=== PATIENT | female | born 1960 | race Caucasian/White ===

== ENCOUNTER 2017-12-03 23:33 | Observation (INO) | payer SELFPAY ==
[~2017-12-03] VITALS: Ht 165.1 cm; Wt 50.0 kg
[~2017-12-03 23:33] MED LIST: CYCL-36 PO; ZITH250T PO
[2017-12-03 23:36] VITALS: BP 118/65; PULSE 104; RESP 16; TEMP 99.4; O2SAT 100
--- NOTE | 2017-12-04 00:05 | PD ---
HPI Chief Complaint: Abdominal Pain Time Seen by Provider: 23:52 Travel History International Travel<30 days: No Contact w/Intl Traveler<30days: No Traveled to known affect area: No History of Present Illness HPI 57yo F with no significant PMH presents to the ED with c/o sudden onset abdominal pain around 7:30pm today. Said pain is mainly epigastric and associated with nausea, vomiting and nonbloody diarrhea. Said she did feel a little better after vomiting but still there. Pain is sharp, constant, nonradiating. Pt also said she started having chills and shaking and her whole body is aching now. Denies actual fever, chest pain, sob, diarrhea, dysuria, hematuria, vaginal bleeding or discharge. PFSH Past Medical History Diminished Hearing: No Genitourinary: Yes (IC) Tetanus Vaccination: Unknown Influenza Vaccination: No ?: Not Past Surgical History Hysterectomy: Yes (partial) Social History Alcohol Use: No Tobacco Use: No Substance Use: No Allergies-Medications (Allergen,Severity, Reaction): Coded Allergies: cephalexin (Unverified Adverse Reaction, Severe, "Bones ache", 12/03/17) Reported Meds & Prescriptions Reported Meds & Active Scripts Active Flexeril (Cyclobenzaprine HCl) 10 Mg Tab 10 Mg PO TID Zithromax Z-Reginaldo (Azithromycin) 250 Mg Tab 250 Mg PO DIRECTED 500 MG (2 TABLETS) PO ON DAY 1, THEN 250 MG (1 TABLET) PO ON DAYS 2 TO 5. Review of Systems Except as stated in HPI: all other systems reviewed are Neg Physical Exam Narrative GENERAL: 57yo F in mild distress. SKIN: Focused skin assessment warm/dry. HEAD: Atraumatic. Normocephalic. EYES: Pupils equal and round. No scleral icterus. No injection or drainage. ENT: No nasal bleeding or discharge. Mucous membranes pink and moist. NECK: Trachea midline. No JVD. No nuchal rigidity. CARDIOVASCULAR: Regular rate and rhythm. No murmur appreciated. RESPIRATORY: No accessory muscle use. Clear to auscultation. Breath sounds equal bilaterally. GASTROINTESTINAL: Abdomen soft, +TTP epigastric region> suprapubic and left lower abdomen. No RLQ ttp. No rebound tenderness or guarding. BACK: No midline ttp thoracic or lumbar spine. +TTP paraspinal T12-L5 bilaterally. MUSCULOSKELETAL: No obvious deformities. No clubbing. No cyanosis. No edema. NEUROLOGICAL: Awake and alert. No obvious cranial nerve deficits. Motor grossly within normal limits in all extremities. Sensation equal. Normal speech. PSYCHIATRIC: Appropriate mood and affect; insight and judgment normal. Data Data Last Documented VS Vital Signs Date Time Temp Pulse Resp B/P (MAP) Pulse Ox O2 Delivery O2 Flow Rate FiO2 12/03/17 23:36 99.4 104 16 118/65 (82) 100 Orders Orders Complete Blood Count With Diff (12/04/17 00:03) Comprehensive Metabolic Panel (12/04/17 00:03) Lipase (12/04/17 00:03) Urinalysis - C+S If Indicated (12/04/17 00:03) Ct Abd/Pel W Iv Contrast(Rout) (12/04/17 00:03) Electrocardiogram (12/04/17 00:03) Ondansetron Odt (Zofran Odt) (12/04/17 00:15) Ketorolac Inj (Toradol Inj) (12/04/17 00:15) Creatine Kinase (Cpk) (12/04/17 00:12) Iohexol 350 Inj (Omnipaque 350 Inj) (12/04/17 00:21) Blood Culture (12/04/17 01:10) Lactic Acid Sepsis Protocol (12/04/17 01:10) Sodium Chlor 0.9% 1000 Ml Inj (Ns 1000 M (12/04/17 01:15) Vancomycin Inj (Vancomycin Inj) (12/04/17 01:15) Aztreonam Inj (Azactam Inj) (12/04/17 01:15) Admit Order (Ed Use Only) (12/04/17 01:18) Labs Laboratory Tests Test 12/04/17 00:12 White Blood Count 4.4 TH/MM3 Red Blood Count 4.19 MIL/MM3 Hemoglobin 13.6 GM/DL Hematocrit 37.6 % Mean Corpuscular Volume 89.7 FL Mean Corpuscular Hemoglobin 32.5 PG Mean Corpuscular Hemoglobin Concent 36.3 % Red Cell Distribution Width 12.5 % Platelet Count 167 TH/MM3 Mean Platelet Volume 8.0 FL CBC Comment AUTO DIFF Differential Total Cells Counted 100 Neutrophils % (Manual) 70 % Band Neutrophils % 14 % Lymphocytes % 7 % Monocytes % 1 % Neutrophils # (Manual) 4.0 TH/MM3 Metamyelocytes 8 % Differential Comment FINAL DIFF MANUAL Toxic Vacuolation PRESENT Platelet Estimate NORMAL Platelet Morphology Comment NORMAL Red Cell Morphology Comment NORMAL Urine Color LIGHT-YELLOW Urine Turbidity CLEAR Urine pH 8.0 Urine Specific [place] 1.009 Urine Protein NEG mg/dL Urine Glucose (UA) NEG mg/dL Urine Ketones NEG mg/dL Urine Occult Blood NEG Urine Nitrite NEG Urine Bilirubin NEG Urine Urobilinogen LESS THAN 2.0 MG/DL Urine Leukocyte Esterase NEG Urine RBC 1 /hpf Urine WBC 1 /hpf Urine Squamous Epithelial Cells <1 /hpf Microscopic Urinalysis Comment CULT NOT INDICATED Blood Urea Nitrogen 16 MG/DL Creatinine 0.97 MG/DL Random Glucose 116 MG/DL Total Protein 9.1 GM/DL Albumin 3.8 GM/DL Calcium Level 9.5 MG/DL Alkaline Phosphatase 118 U/L Aspartate Amino Transf (AST/SGOT) 28 U/L Alanine Aminotransferase (ALT/SGPT) 25 U/L Total Bilirubin 0.6 MG/DL Sodium Level 139 MEQ/L Potassium Level 3.7 MEQ/L Chloride Level 102 MEQ/L Carbon Dioxide Level 29.4 MEQ/L Anion Gap 8 MEQ/L Estimat Glomerular Filtration Rate 59 ML/MIN Total Creatine Kinase 111 U/L Lipase 167 U/L [facility] Medical Decision Making Medical Screen Exam Complete: Yes Emergency Medical Condition: Yes Interpretation(s) EKG: NSR 95bpm. Normal axis. Q wave V2. No significant ST segment elevation. Mild ST depression V4-V6. Reviewed previous EKG in 2016 and there was Q wave in V2 as well. Differential Diagnosis Gastroenteritis vs. pancreatitis vs. viral syndrome vs. diverticulitis vs. cystitis vs. dehydration Narrative Course 57yo F with sudden onset epigastric abdominal pain and then nausea and vomiting. Also feels generalized ache after vomiting. Labs reviewed, no leukocytosis but pt has 14% bandemia as well as toxic vacuolation present. Pt is mildly tachycardic at 104bpm. Pt meets SIRS criteria with no definite source , could be bacteremia. Blood cultures x2 and lactic acid added. Will cover pt with broad spectrum antibiotics vancomycin and aztreonam since pt is allergic to cephalexin. Pt given NS IVF. H/H normal. Lipase normal. LFTs unremarkable. CPK normal. Creatinine normal. UA negative. CT a/p showed nonspecific bowel gas pattern. No dilatation to suggest obstruction. Unremarkable. Pt reevaluated at bedside and given zofran and toradol. Pain has improved and nausea has resolved. Discuss with Dr. Villalobos and accepted to his service. Sepsis Criteria SIRS Criteria (2 or more): Heart rate over 90, WBC > 56856, < 4000 or > 10% bands Diagnosis Primary Impression: Bandemia Admitting Information Admitting Physician Requests: Observation Courtney Aguirre DO December 04, 2017 00:05
[2017-12-04] MEDS ORDERED: KETOROLAC TROMETHAMINE 30 MG/ML (IVP) VIAL IV PUSH ONE (00:15)
[2017-12-04] MEDS ORDERED: ONDANSETRON ODT 4 MG TAB PO ONE (00:15)
[2017-12-04] MEDS ORDERED: IOHEXOL 350 MG/ML 10 ML VIAL (for RAD DIAG) IVCONTRAST ONE (00:21)
[2017-12-04 00:27] LABS: HEMATOCRIT 37.6 % (35.0-46.0); HEMOGLOBIN 13.6 GM/DL (11.6-15.3); MEAN CELL VOLUME 89.7 FL (80.0-100.0); MEAN CORPUSCULAR HEMOGLOBIN 32.5 PG (27.0-34.0); PLATELET COUNT 167 TH/MM3 (150-450); RED BLOOD COUNT 4.19 MIL/MM3 (4.00-5.30); RED CELL DISTRIBUTION WIDTH 12.5 % (11.6-17.2); WHITE BLOOD COUNT 4.4 TH/MM3 (4.0-11.0)
[2017-12-04 00:28] LABS: BILIRUBIN, URINE NEG (NEG); BLOOD, URINE NEG (NEG); GLUCOSE,URINE NEG (NEG); KETONE, URINE NEG (NEG); NITRITE,URINE NEG (NEG); SQUAMOUS EPITHELIAL CELL URINE <1 /hpf (0-5); URINE COLOR LIGHT-YELLOW (YELLW/STRAW); URINE LEUKOCYTE ESTERASE NEG (NEG)
[2017-12-04 00:29] LABS: MEAN CORPUSCULAR HGB CONC 36.3 % (32.0-36.0)
--- NOTE | 2017-12-04 00:33 | RADRPT ---
EXAM DATE/TIME: 12/04/2017 00:15 [facility] COMPARISON: No previous studies available for comparison. INDICATIONS : Epigastric abdominal pain. IV CONTRAST: 75 cc Omnipaque 350 (iohexol) IV ORAL CONTRAST: No oral contrast ingested. RADIATION DOSE: 6.64 CTDIvol (mGy) MEDICAL HISTORY : None SURGICAL HISTORY : Hysterectomy. ENCOUNTER: Initial ACUITY: 1 day PAIN SCALE: 7/10 LOCATION: Abdomen. TECHNIQUE: Volumetric scanning of the abdomen and pelvis was performed. Using automated exposure control and ad justment of the mA and/or kV according to patient size, radiation dose was kept as low as reasonably achievable to obtain optimal diagnostic quality images. DICOM format image data is available electro nically for review and comparison. FINDINGS: LOWER LUNGS: The visualized lower lungs are clear. LIVER: Homogeneous density without lesion. There is no dilation of the biliary tree. No calcified gallston es. SPLEEN: Normal size without lesion. PANCREAS: Within normal limits. KIDNEYS: Normal in size and shape. There is no mass, stone or hydronephrosis. ADRENAL GLANDS: Within normal limits. VASCULAR: There is no aortic aneurysm. BOWEL/MESENTERY: Fluid-filled loops of nondilated large and small bowel. No inflammatory change observed. No free air or free fluid. Gas and stool seen to the level of the rectum. The stomach is a J - shaped stomach and nondistended. ABDOMINAL WALL: Within normal limits. RETROPERITONEUM: There is no lymphadenopathy. BLADDER: No wall thickening or mass. REPRODUCTIVE: Within normal limits. INGUINAL: There is no lymphadenopathy or hernia. MUSCULOSKELETAL: Within normal limits for patient age. CONCLUSION: 1. Nonspecific bowel gas pattern. No dilatation to suggest obstruction. Otherwise, unremarkable exam. Jori Franz Jr., MD on December 04, 2017 at 0:28 Board Certified Radiologist. This report was verified electronically.
[2017-12-04 00:49] LABS: ALBUMIN 3.8 GM/DL (3.4-5.0); ALT (GPT) 25 U/L (10-53); AST (GOT) 28 U/L (15-37); BICARBONATE 29.4 MEQ/L (21.0-32.0); BLOOD UREA NITROGEN 16 MG/DL (7-18); CALCIUM 9.5 MG/DL (8.5-10.1); CHLORIDE 102 MEQ/L (98-107); CREATININE 0.97 MG/DL (0.50-1.00); GLOMERULAR FILTRATION RATE 59 ML/MIN (>89); GLUCOSE,RANDOM 116 MG/DL (74-106); SODIUM (NA) 139 MEQ/L (136-145)
[2017-12-04 00:51] LABS: ALKALINE PHOSPHATASE 118 U/L (45-117); TOTAL BILIRUBIN ADULT 0.6 MG/DL (0.2-1.0); TOTAL PROTEIN 9.1 GM/DL (6.4-8.2)
[2017-12-04 00:56] LABS: BANDS 14 % (0-6); LYMPHOCYTES 7 % (9-44); METAMYELOCYTES 8 % (0-1); MONOCYTES 1 % (0-8); POLYS (SEG NEUTROPHILS) 70 % (16-70)
[2017-12-04 00:59] LABS: TOXIC VACUOLATION PRESENT (NONE SEEN)
[2017-12-04] MEDS ORDERED: SODIUM CHLOR 0.9% 1000 ML INJ 1,000 ML IV ONE (01:15)
[2017-12-04] MEDS ORDERED: AZTREONAM INJ 2,000 MG in SODIUM CHLORIDE 0.9% INJ 100 ML IV ONE (01:15)
[2017-12-04] MEDS ORDERED: VANCOMYCIN INJ 750 MG in SODIUM CHLOR 0.9% 250 ML INJ 250 ML IV ONE (01:15)
[2017-12-04] MEDS ORDERED: ACETAMINOPHEN/HYDROcodone 325 MG/5 MG TAB PO PRN (01:45)
[2017-12-04] MEDS ORDERED: ACETAMINOPHEN 325 MG TAB PO PRN (01:45)
[2017-12-04] MEDS ORDERED: ONDANSETRON HCL 4 MG/2 ML VIAL IV PUSH PRN (01:45)
--- NOTE | 2017-12-04 01:58 | HHI.HP ---
[facility] No Primary Care Physician Admission Diagnosis Bandemia Diagnoses: (1) Abdominal pain Diagnosis: Principal (2) Bandemia Diagnosis: Principal Chief Complaint: abdominal pain Travel History International Travel<30 Days: No Contact w/Intl Traveler <30 Da: No Traveled to Known Affected Are: No Sepsis Criteria SIRS Criteria (2 or more): Heart rate over 90, WBC > 32417, < 4000 or > 10% bands Criteria Outcome: Meets SIRS criteria History of Present Illness patient is a 57 y/o female with no significant past medica history who presented to ER with abdominal pain. she says that the pain started few hours ago. pain was periumbilical with no radiation. pain was moderate in intensity and was associated with nausea, emesis and diarrhea. she denies any fever but had some chills and generalized body ache. abdominal pain was better at the time of my evaluation. she doesn't report any sob, cough or urinary complaints. Review of Systems Constitutional: DENIES: Fever, Weight loss, Chills, Night Sweats Eyes: DENIES: Blurred vision, Diplopia, Vision loss, Double Vision Ears, nose, mouth, throat: DENIES: Tinnitus, Vertigo, Throat pain, Epistaxis Respiratory: DENIES: Apneas, Cough, Snoring, Wheezing, Hemoptysis, Sputum production, Shortness of breath Cardiovascular: DENIES: Chest pain, Palpitations, Syncope, Dyspnea on Exertion , PND, Lower Extremity Edema, Orthopnea, Claudication Gastrointestinal: COMPLAINS OF: Abdominal pain, Diarrhea, Nausea, Vomiting, DENIES: Black stools, Bloody stools, Constipation, Difficulty Swallowing, Anorexia Genitourinary: DENIES: Urinary frequency, Urgency, Hematuria, Dysuria Musculoskeletal: DENIES: Joint pain, Muscle aches, Stiffness, Joint Swelling Integumentary: DENIES: Rash Neurologic: DENIES: Abnormal gait, Headache, Localized weakness, Paresthesias, Seizures, Speech Problems, Tremor, Poor Balance Psychiatric: DENIES: Anxiety, Confusion, Mood changes, Depression, Hallucinations, Agitation, Suicidal Ideation, Homicidal Ideation, Delusions Past Family Social History Past Medical History not significant. Past Surgical History partial hysterectomy. Reported Medications none. Allergies: Coded Allergies: cephalexin (Unverified Adverse Reaction, Severe, "Bones ache", 12/03/17) Active Ordered Medications Inpatient Medications Aztreonam 2000 mg/ Sodium Chloride 100 ml @ 200 mls/hr ONCE ONCE IV ; Start at 01:15; Stop 12/04/17 at 01:44 Ketorolac Tromethamine (Toradol Inj) 30 mg ONCE ONCE IV PUSH Last administered on 12/04/17at 00:16; Start 12/04/17 at 00:15; Stop 12/04/17 at 00:16 ; Status DC Ondansetron HCl (Zofran Odt) 4 mg ONCE ONCE PO Last administered on at 00:12; Start 12/04/17 at 00:15; Stop 12/04/17 at 00:16; Status DC Sodium Chloride 1,000 ml @ 999 mls/hr BOLUS ONCE IV ; Start 12/04/17 at 01:15 ; Stop 12/04/17 at 02:15 Vancomycin HCl 750 mg/Sodium Chloride 257.5 ml @ 250 mls/hr ONCE ONCE IV ; Start 12/04/17 at 01:15; Stop 12/04/17 at 02:16 Family History stomach cancer in mother. Social History no smoking or drinking. Physical Exam Vital Signs Vital Signs Date Time Temp Pulse Resp B/P (MAP) Pulse Ox O2 Delivery O2 Flow Rate FiO2 12/03/17 23:36 99.4 104 16 118/65 (82) 100 Physical Exam GENERAL: This is a well-nourished, well-developed patient, in no apparent distress. SKIN: No rashes, ecchymoses or lesions. Cool and dry. HEAD: Atraumatic. Normocephalic. No temporal or scalp tenderness. EYES: Pupils equal round and reactive. Extraocular motions intact. No scleral icterus. No injection or drainage. ENT: Nose without bleeding, purulent drainage or septal hematoma. Throat without erythema, tonsillar hypertrophy or exudate. Uvula midline. Airway patent. NECK: Trachea midline. No JVD or lymphadenopathy. Supple, nontender, no meningeal signs. CARDIOVASCULAR: Regular rate and rhythm without murmurs, gallops, or rubs. RESPIRATORY: Clear to auscultation. Breath sounds equal bilaterally. No wheezes , rales, or rhonchi. GASTROINTESTINAL: Abdomen soft, mild periumbilical tenderness, nondistended. No hepato-splenomegaly, or palpable masses. No guarding. MUSCULOSKELETAL: Extremities without clubbing, cyanosis, or edema. No joint tenderness, effusion, or edema noted. No calf tenderness. Negative Homans sign bilaterally. NEUROLOGICAL: Awake and alert. Cranial nerves II through XII intact. Motor and sensory grossly within normal limits. Five out of 5 muscle strength in all muscle groups. Normal speech. Laboratory Laboratory Tests Test 12/04/17 00:12 12/04/17 01:25 White Blood Count 4.4 Red Blood Count 4.19 Hemoglobin 13.6 Hematocrit 37.6 Mean Corpuscular Volume 89.7 Mean Corpuscular Hemoglobin 32.5 Mean Corpuscular Hemoglobin Concent 36.3 Red Cell Distribution Width 12.5 Platelet Count 167 Mean Platelet Volume 8.0 CBC Comment AUTO DIFF Differential Total Cells Counted 100 Neutrophils % (Manual) 70 Band Neutrophils % 14 Lymphocytes % 7 Monocytes % 1 Neutrophils # (Manual) 4.0 Metamyelocytes 8 Differential Comment FINAL DIFF MANUAL Toxic Vacuolation PRESENT Platelet Estimate NORMAL Platelet Morphology Comment NORMAL Red Cell Morphology Comment NORMAL Urine Color LIGHT-YELLOW Urine Turbidity CLEAR Urine pH 8.0 Urine Specific [place] 1.009 Urine Protein NEG Urine Glucose (UA) NEG Urine Ketones NEG Urine Occult Blood NEG Urine Nitrite NEG Urine Bilirubin NEG Urine Urobilinogen LESS THAN 2.0 Urine Leukocyte Esterase NEG Urine RBC 1 Urine WBC 1 Urine Squamous Epithelial Cells <1 Microscopic Urinalysis Comment CULT NOT INDICATED Blood Urea Nitrogen 16 Creatinine 0.97 Random Glucose 116 Total Protein 9.1 Albumin 3.8 Calcium Level 9.5 Alkaline Phosphatase 118 Aspartate Amino Transf (AST/SGOT) 28 Alanine Aminotransferase (ALT/SGPT) 25 Total Bilirubin 0.6 Sodium Level 139 Potassium Level 3.7 Chloride Level 102 Carbon Dioxide Level 29.4 Anion Gap 8 Estimat Glomerular Filtration Rate 59 Total Creatine Kinase 111 Lipase 167 Date/Time Source Procedure Growth Status 12/04/17 01:25 Blood Peripheral Aerobic Blood Culture Pending Received 12/04/17 01:25 Blood Peripheral Anaerobic Blood Culture Pending Received Result Diagram: 12/04/17 0012 12/04/17 0012 Imaging Last Impressions Abdomen/Pelvis CT 12/04/17 0003 Signed Impressions: Service Date/Time: WedDecember 04, 2017 00:15 - CONCLUSION: 1. Nonspecific bowel gas pattern. No dilatation to suggest obstruction. Otherwise, unremarkable exam. MD Aimee Neal Jr. VTE Risk Assessment Caprini VTE Risk Assessment: No/Low Risk (score <= 1) Caprini Risk Assessment Model Point Value = 1 Point Value = 2 Point Value = 3 Point Value = 5 Age 41-60 Minor surgery BMI > 25 kg/m2 Swollen legs Varicose veins or History of unexplained or recurrent spontaneous Oral contraceptives or hormone replacement Sepsis (< 1 month) Serious lung disease, including pneumonia (< 1 month) Abnormal pulmonary function Acute myocardial infarction Congestive heart failure (< 1 month) History of inflammatory bowel disease Medical patient at bed rest Age 61-74 Arthroscopic surgery Major open surgery (> 45 min) Laparoscopic surgery (> 45 min) Malignancy Confined to bed (> 72 hours) Immobilizing plaster cast Central venous access Age >= 75 History of VTE Family history of VTE Factor V Leiden Prothrombin [id number] Lupus anticoagulant Anticardiolipin antibodies Elevated serum homocysteine Heparin-induced thrombocytopenia Other congenital or acquired thrombophilia Stroke (< 1 month) Elective arthroplasty Hip, pelvis, or leg fracture Acute spinal cord injury (< 1 month) Prophylaxis Regimen Total Risk Factor Score Risk Level Prophylaxis Regimen 0-1 Low Early ambulation 2 Moderate Order ONE of the following: *Sequential Compression Device (SCD) *Heparin 5000 units SQ BID 3-4 Higher Order ONE of the following medications: *Heparin 5000 units SQ TID *Enoxaparin/Lovenox 40 mg SQ daily (WT < 150 kg, CrCl > 30 mL/min) *Enoxaparin/Lovenox 30 mg SQ daily (WT < 150 kg, CrCl > 10-29 mL/min) *Enoxaparin/Lovenox 30 mg SQ BID (WT < 150 kg, CrCl > 30 mL/min) AND/OR *Sequential Compression Device (SCD) 5 or more Highest Order ONE of the following medications: *Heparin 5000 units SQ TID (Preferred with Epidurals) *Enoxaparin/Lovenox 40 mg SQ daily (WT < 150 kg, CrCl > 30 mL/min) *Enoxaparin/Lovenox 30 mg SQ daily (WT < 150 kg, CrCl > 10-29 mL/min) *Enoxaparin/Lovenox 30 mg SQ BID (WT < 150 kg, CrCl > 30 mL/min) AND *Sequential Compression Device (SCD) Assessment and Plan Assessment and Plan A/P - sepsis ( bandemia/ tachycardia) / gastroenteritis ( abdominal pain,nausea, vomiting, diarrhea) continue with broad spectrum IV antibiotics for now - pending the blood cultures/ stool work-up and repeated CBC in am start on clear liquid diet and advance the diet as tolerated- continue with supportive care with IV fluid, pain control and antiemetics as needed. Discussed Condition With ER physician and the patient. Problem Qualifiers (1) Abdominal pain: Qualified Codes: R10.33 - Periumbilical pain Kimberly Villalobos MD December 04, 2017 01:58
[2017-12-04] MEDS ORDERED: CEFEPIME INJ 1,000 MG in SODIUM CHLORIDE 0.9% INJ 100 ML IV SCH (03:00)
[2017-12-04] MEDS: SODIUM CHLOR 0.9% 1000 ML INJ 1,000 ML IV SCH ×2 (03:43→11:45)
[2017-12-04 04:13] VITALS: BP 106/55; PULSE 89; RESP 18; TEMP 98.7; O2SAT 98
[2017-12-04 07:04] LABS: AUTOMATED NEUTROPHIL # 11.9 TH/MM3 (1.8-7.7); BASOPHIL % 0.4 % (0.0-2.0); HEMATOCRIT 34.9 % (35.0-46.0); HEMOGLOBIN 11.6 GM/DL (11.6-15.3); LYMPHOCYTE # 0.7 TH/MM3 (1.0-4.8); MEAN CORPUSCULAR HEMOGLOBIN 30.8 PG (27.0-34.0); MEAN CORPUSCULAR HGB CONC 33.1 % (32.0-36.0); MEAN PLATELET VOLUME 8.1 FL (7.0-11.0); MONO % 4.1 % (0.0-8.0); MONOCYTE # 0.5 TH/MM3 (0-0.9); NEUT % 90.5 % (16.0-70.0); PLATELET COUNT 143 TH/MM3 (150-450); RED BLOOD COUNT 3.75 MIL/MM3 (4.00-5.30); RED CELL DISTRIBUTION WIDTH 13.1 % (11.6-17.2); WHITE BLOOD COUNT 13.2 TH/MM3 (4.0-11.0)
[2017-12-04 07:23] VITALS: BP 88/52; PULSE 75; RESP 16; TEMP 98.1; O2SAT 98
[2017-12-04] MEDS ORDERED: metroNIDAZOLE 500 MG TAB PO ONE (08:45)
[2017-12-04] MEDS ORDERED: LEVOFLOXACIN 750 MG PREMIX INJ 150 ML IV SCH (09:00)
[2017-12-04 12:12] VITALS: BP 97/53; PULSE 72; RESP 16; TEMP 98.2; O2SAT 99
[2017-12-04] MEDS ORDERED: METR-1 PO (12:26)
[2017-12-04] MEDS ORDERED: LACTTAB8 PO (12:26)
[2017-12-04] MEDS ORDERED: CIPR500T2 PO (12:26)
--- NOTE | 2017-12-04 12:30 | HHI.DS ---
Discharge Summary Admission Date December 04, 2017 at 01:19 Discharge Date: December 04, 2017 Admitting Diagnosis Bandemia (1) Abdominal pain ICD Code: R10.9 - Unspecified abdominal pain Diagnosis: Principal (2) Bandemia ICD Code: D72.825 - Bandemia Diagnosis: Principal Status: Acute Procedures None Brief History - From Admission patient is a 57 y/o female with no significant past medica history who presented to ER with abdominal pain. she says that the pain started few hours ago. pain was periumbilical with no radiation. pain was moderate in intensity and was associated with nausea, emesis and diarrhea. she denies any fever but had some chills and generalized body ache. abdominal pain was better at the time of my evaluation. she doesn't report any sob, cough or urinary complaints. CBC/BMP: 12/04/17 0657 12/04/17 0012 Significant Findings Laboratory Tests Test 12/04/17 00:12 12/04/17 01:25 12/04/17 06:57 Mean Corpuscular Hemoglobin Concent 36.3 % (32.0-36.0) Band Neutrophils % 14 % (0-6) Lymphocytes % 7 % (9-44) Metamyelocytes 8 % (0-1) Toxic Vacuolation PRESENT (NONE SEEN) Random Glucose 116 MG/DL (74-106) Total Protein 9.1 GM/DL (6.4-8.2) Alkaline Phosphatase 118 U/L (45-117) Estimat Glomerular Filtration Rate 59 ML/MIN (>89) White Blood Count 13.2 TH/MM3 (4.0-11.0) Red Blood Count 3.75 MIL/MM3 (4.00-5.30) Hematocrit 34.9 % (35.0-46.0) Platelet Count 143 TH/MM3 (150-450) Neutrophils (%) (Auto) 90.5 % (16.0-70.0) Lymphocytes (%) (Auto) 5.0 % (9.0-44.0) Neutrophils # (Auto) 11.9 TH/MM3 (1.8-7.7) Lymphocytes # (Auto) 0.7 TH/MM3 (1.0-4.8) Hospital Course Mrs. Cole is a 57-year-old female. At baseline she is generally healthy. She came in yesterday for nausea, vomiting, diarrhea, joint pains, and abdominal pain. Patient was febrile with chills at home. Bandemia was seen in the ER. This morning she has a leukocytosis. However, symptoms have improved. Diarrhea has resolved. Nausea and vomiting are improved and patient is tolerating diet today for 2 meals without vomiting. No evidence of fevers. Changes of bandemia or leukocytosis could be reactive as etiology for her symptoms may be viral. However, coverage with antibiotics is warranted given these findings. She is medically stable and tolerating p.o. intake at this point. She is medically cleared for discharge home today with continuation of oral antibiotics. Ciprofloxacin, Flagyl, Phenergan, and probiotics are provided. Pt Condition on Discharge: Stable Discharge Disposition: Discharge Home Discharge Time: <= 30 minutes Discharge Instructions Follow up Referrals: PCP Follow-up - 2 Weeks New Medications: Ciprofloxacin (Ciprofloxacin) 500 Mg Tab 500 MG PO BID for Infection, #10 TAB 0 Refills Lactobacillus Acidophilus (Lactobacillus Acidophilus) 1 Billion Cell Tab 1 TAB PO TIDAC for Nutritional Supplement, #30 TAB 0 Refills Promethazine (Phenergan) 25 Mg Tablet 25 MG PO Q6H PRN for NAUSEA OR VOMITING, #20 TAB 0 Refills Metronidazole (Flagyl) 500 Mg Tab 500 MG PO Q8HR for Infection, #15 TAB Continued Medications: Cyclobenzaprine Hcl (Flexeril) 10 Mg Tab 10 MG PO TID, #15 TAB 0 Refills Discontinued Medications: Azithromycin (Zithromax Z-Reginaldo) 250 Mg Tab 250 MG PO DIRECTED, #6 TAB 500 MG (2 TABLETS) PO ON DAY 1, THEN 250 MG (1 TABLET) PO ON DAYS 2 TO 5. Rashid Manzano MD December 04, 2017 12:30
[2017-12-04] MEDS ORDERED: PROM25TA10 PO (13:49)
[2017-12-04] MEDS ORDERED: metroNIDAZOLE 500 MG TAB PO SCH (14:00)
--- NOTE | 2017-12-04 22:17 | EKG ---
Date Performed: 12/04/2017 Time Performed: 06:35:29 PTAGE: 57 years EKG: Sinus rhythm SEPTAL MYOCARDIAL INFARCTION ABNORMAL ECG PREVIOUS TRACING : 12/04/2017 00.49 Since the previous tracing, no significant change noted DOCTOR: Hermann Magana Interpretating Date/Time 12/04/2017 22:17:09
--- NOTE | 2017-12-04 22:22 | EKG ---
Date Performed: 12/04/2017 Time Performed: 00:49:05 PTAGE: 57 years EKG: Sinus rhythm SEPTAL MYOCARDIAL INFARCTION ABNORMAL ECG PREVIOUS TRACING : 05/04/2016 19.53 Since the previous tracing, no significant change noted DOCTOR: Hermann Magana Interpretating Date/Time 12/04/2017 22:20:35
== END 2017-12-04 15:11 | disposition home or self-care (01) ==
LOC: NEPC 23:33 → NEDA 12-04 01:19 → NEPHCDU 12-04 02:28
PROVIDERS: ADMIT Hospitalist; ATTEND Hospitalist
DX: R10.33 Periumbilical pain (principal); R10.13 Epigastric pain; R11.2 Nausea with vomiting, unspecified; R19.7 Diarrhea, unspecified; D72.825 Bandemia; R00.0 Tachycardia, unspecified; R94.31 Abnormal electrocardiogram [ECG] [EKG]
CPT/HCPCS: 74177; 80053; 81001; 82550; 83605; 83690; 85007; 85025; 85027; 87040; 93005; 96361; 96365; 96366; 96367; 96375; 99285; G0378; J0692; J1885; J1956; J3370; J7030; J7050; Q9967